=== PATIENT | female | born 1975 | race Caucasian/White ===

== ENCOUNTER 2021-05-07 17:03 | Emergency (ER) | payer MEDICAID ==
[~2021-05-07] VITALS: Ht 162.6 cm; Wt 77.3 kg
[2021-05-07 17:06] VITALS: BP 138/92
[2021-05-07] MEDS ORDERED: CLINDAMYCIN 900 MG/D5% WATER 50 ML IV ONE (17:45)
== END 2021-05-07 19:43 | disposition home or self-care (01) ==
LOC: EMS 17:03
DX: K08.89 Other specified disorders of teeth and supporting structures (principal); Z88.0 Allergy status to penicillin
CPT/HCPCS: 96365; 99284; J3490

== ENCOUNTER 2021-08-12 18:17 | Emergency (ER) | payer MEDICAID, OTHER ==
[~2021-08-12] VITALS: Ht 157.5 cm; Wt 84.1 kg
[2021-08-12] MEDS ORDERED: LIDOCAINE 5% TRANSDERMAL PATCH TD ONE (20:30)
[2021-08-12] MEDS ORDERED: HYDROCODONE/ACETAMINOPHEN 5-325 MG TABLET PO ONE (20:30)
[2021-08-12] MEDS ORDERED: HYDR-4723 PO (21:49)
[2021-08-12 22:45] VITALS: BP 128/79
== END 2021-08-12 22:51 | disposition home or self-care (01) ==
LOC: EMS 18:24
DX: M54.50 Low back pain, unspecified (principal); Z88.0 Allergy status to penicillin
CPT/HCPCS: 72100; 99283